=== PATIENT | female | born 1985 | race Caucasian/White ===

== ENCOUNTER 2016-12-13 06:35 | Emergency (ER) | payer OTHER ==
[2016-12-13 07:28] VITALS: TEMP 98; BMI 30.4
--- NOTE | 2016-12-13 07:49 | PDOC ---
History of Present Illness - General Chief Complaint: Pain, Acute Stated Complaint: FALL/PAIN Time Seen by Provider: 12/13/16 07:10 History Source: Patient Exam Limitations: No Limitations - History of Present Illness Initial Comments: 12/13/16 08:05 30-year-old female presents to the ED with complaints of tailbone discomfort worsened with standing and sitting since yesterday. Patient states was running inside with her son when she slipped on the left lower in her home causing her to slip backwards landing on her tailbone. Patient states pain initially was not as intense as been over the past day and has taken Tylenol, Naprosyn and Motrin with no relief. Patient denies previous injury to the affected area and denies any sensory changes distally radiation of pain into her abdominal area or weakness to the lower extremity is. Occurred: reports: yesterday Severity: reports: mild Pain Location: reports: back Method of Injury: Yes: fall Modifying Factors: improves with: None Loss of Consciousness: no loss of consciousness Associated Symptoms (Fall): denies symptoms Past History - Past Medical History Allergies/Adverse Reactions: Allergies Allergy/AdvReac Type Severity Reaction Status Date / Time Penicillins Allergy Severe Swelling Verified 12/13/16 07:28 Home Medications: Ambulatory Orders NK [No Known Home Medication] 12/13/16 Asthma: No Cancer: No Cardiac Disorders: No Diabetes: No HTN: No Psychiatric Problems: Yes (ANXIETY) Suicide Attempt (Hx): No Seizures: No Thyroid Disease: No - Surgical History Abdominal Surgery: No - Reproductive History (#): 4 Para: 0 - Immunization History Immunization Up to Date: Yes - Psycho/Social/Smoking Cessation Hx Anxiety: No Suicidal Ideation: No Smoking Status: Yes Smoking History: Never smoked Have you smoked in the past 12 months: No Number of Cigarettes Smoked Daily: 20 If you are a former smoker, when did you quit?: with Information on smoking cessation initiated: No 'Breaking Loose' booklet given: 06/04/15 Hx Alcohol Use: No Drug/Substance Use Hx: No Substance Use Type: None Hx Substance Use Treatment: No Patient Lives Alone: No Lives with/in: spouse/SO Review of Systems - Review of Systems Able to Perform ROS?: Yes Constitutional: No: Symptoms Reported Musculoskeletal: Yes: Back Pain Integumentary: No: Symptoms Reported, Bruising Neurological: No: Symptoms reported Endocrine: No: Symptoms Reported *Physical Exam - Vital Signs Last Vital Signs Temp Pulse Resp BP Pulse Ox 98.0 F 87 18 105/73 99 12/13/16 07:17 12/13/16 07:12/13/16 07:17 12/13/16 07:12/13/16 07:17 - Physical Exam General Appearance: Yes: Nourished, Appropriately Dressed. No: Apparent Distress Gastrointestinal/Abdominal: positive: Soft. negative: Tenderness Musculoskeletal: positive: Vertebral Tenderness. negative: Decreased Range of Motion (-), Muscle Spasm (S1 and ) Integumentary: positive: Normal Color (2), Warm (S), Moist (2) Neurologic: positive: Motor Strength 5/5 (ambulatory). negative: Sensory Deficit Deep Tendon Reflexes: Knee (L): 2+, Knee (R): 2+ Medical Decision Making - Medical Decision Making 12/13/16 08:09 Patient status post mechanical fall. Patient exam had tenderness to the L5-S2 without neurofocal deficits. Patient ordered for Percocet and x-ray. 12/13/16 08:37 X-ray negative for acute findings. Patient be discharged home with Percocet and told to rest and place ice to the affected area. *DC/Admit/Observation/Transfer Diagnosis at time of Disposition: Contusion of sacrum Qualifiers: Encounter type: initial encounter Qualified Code(s): S30.0XXA - Contusion of lower back and pelvis, initial encounter - Discharge Dispostion Disposition: HOME Condition at time of disposition: Good - Patient Instructions Printed Discharge Instructions: DI for Contusion Additional Instructions: Please take Percocet as needed for discomfort and apply ice to the affected area for the next 2 days. Avoid certain movements that triggered discomfort and rest.
[2016-12-13] MEDS ORDERED: ACETAMINOPHEN 325 MG TABLET (FP) PO ONE (08:02)
[2016-12-13] MEDS ORDERED: OXYCODONE/APAP 5/325MG COMBO TABLET PO ONE (08:02)
[2016-12-13] MEDS ORDERED: OXYCODONE/APAP 5/325MG COMBO TABLET ONE (08:05)
[2016-12-13] MEDS ORDERED: ACETAMINOPHEN 325 MG TABLET (FP) ONE (08:05)
[2016-12-13 09:32] VITALS: BP 110/69; PULSE 71
== END 2016-12-13 09:32 | disposition home or self-care (01) ==
LOC: JER 06:35
DX: S30.0XXA Contusion of lower back and pelvis, initial encounter (principal); W01.0XXA Fall on same level from slipping, tripping and stumbling without subsequent striking against object, initial encounter; Y93.89 Activity, other specified; Y92.018 Other place in single-family (private) house as the place of occurrence of the external cause
CPT/HCPCS: 72100-TC; 84703; 99283-25

== ENCOUNTER 2017-07-11 11:14 | Emergency (ER) | payer OTHER ==
[2017-07-11 11:31] VITALS: BP 111/74; PULSE 89; TEMP 97.8; BMI 30.4
--- NOTE | 2017-07-11 12:21 | PDOC ---
History of Present Illness - General Chief Complaint: Psychiatric Stated Complaint: CHEST PAIN, ANXIETY, INJURY Time Seen by Provider: 07/11/17 11:56 - History of Present Illness Initial Comments: 07/11/17 13:00 The patient is a 31 year old female with a history of anxiety who presents for evaluation of right hip pain, chest tightness, and SOB. The patient reports tripping and falling 1 day ago and landing on her right hip. She reports difficulty ambulating since the incident secondary to pain. She reports a sensation of chest tightness and SOB beginning earlier today prompting her presentation to the ED for evaluation. She reports her chest tightness and SOB feel similar to her previous anxiety attacks of which she has not had one in over a year. She denies fevers, chills, nausea, vomiting, abdominal pain, or changes with urination or bowel movements. Past History - Past Medical History Allergies/Adverse Reactions: Allergies Allergy/AdvReac Type Severity Reaction Status Date / Time Penicillins Allergy Severe Swelling Verified 07/11/17 11:48 Asthma: No Cancer: No Cardiac Disorders: No Diabetes: No HTN: No Psychiatric Problems: Yes (ANXIETY) Seizures: No Thyroid Disease: No - Surgical History Abdominal Surgery: Yes () - Reproductive History (#): 4 Para: 0 - Immunization History Immunization Up to Date: Yes - Suicide/Smoking/Psychosocial Hx Smoking Status: Yes Smoking History: Former smoker Have you smoked in the past 12 months: No Number of Cigarettes Smoked Daily: 20 If you are a former smoker, when did you quit?: with Information on smoking cessation initiated: No 'Breaking Loose' booklet given: 06/04/15 Hx Alcohol Use: No Drug/Substance Use Hx: No Substance Use Type: None Hx Substance Use Treatment: No Review of Systems - Review of Systems Comments:: 07/11/17 13:03 Constitutional: No fevers, chills, fatigue, malaise HEENT: No Rhinorrhea, nasal congestion, Cardiovascular: Chest tightness. No syncope, palpitations, lightheadedness Respiratory: SOB. No Cough, Hemoptysis, Gastrointestinal: No Abdominal pain, Nausea, Vomiting, Constipation, Diarrhea, Melena Genitourinary: No Dysuria, Frequency, Urgency, Hesitancy, Hematuria, Flank pain Musculoskeletal: Right hip pain. No Myalgia, arthralgia Skin: No rashes, bruising, pallor Neurologic: No Headache, Dizziness, Numbness, Weakness, or Tingling *Physical Exam - Vital Signs Last Vital Signs Temp Pulse Resp BP Pulse Ox 97.8 F 89 20 111/74 100 07/11/17 11:22 07/11/17 11:22 07/11/17 11:22 07/11/17 11:22 07/11/17 11:49 - Physical Exam Comments: 07/11/17 13:04 General Appearance: Nourished. No Apparent Distress HEENT: EOMI, RAUL Respiratory/Chest: Lungs Clear, Normal Breath Sounds. No Crackles, Rales, Rhonchi, Wheezing Cardiovascular: Regular Rhythm, Regular Rate. No Murmur, Gallops, Rubs Gastrointestinal/Abdominal: Normal Bowel Sounds, Soft. No Guarding, Rebound, Tenderness Musculoskeletal: No CVA Tenderness Extremity: Pain with flexion of the right hip. Normal Capillary Refill Integumentary: Normal Color, Dry, Warm Neurologic: Fully Oriented, Alert, Normal Mood/Affect, Normal Response, ED Treatment Course - LABORATORY CBC & Chemistry Diagram: 07/11/17 13:00 07/11/17 13:00 Medical Decision Making - Medical Decision Making 07/11/17 13:05 The patient is a 31 year old female with a history of anxiety who presents for evaluation of right hip pain, chest tightness, and SOB. Differential includes but is not limited to: Fracture, contusion, anxiety, metabolic derangement. Given her pain with movement of her right hip with a history of trauma, we will obtain plain films to evaluate. Her chest tightness and SOB is likely due to anxiety and an EKG done in triage demonstrates normal sinus rhythm. We will send a cbc, cmp, troponin to evaluate further. We will treat her with toradol and valium. We will continue to monitor and reassess. 07/11/17 14:43 cbc, cmp, troponin are unremarkable. Hip plain film is unremarkable as read by our radiologist. The patient reports some improvement in her pain. We discussed the option of obtaining a CT of her hip given her continued pain if she is unable to ambulate. The patient stated that she is able to ambulate and does not want the CT. We informed her to follow up with orthopedics if she has continued pain within the next 2-3 days. We are comfortable discharging her home with crutches and discussed proper care with her. She voiced understanding and is agreeable with the plan. *DC/Admit/Observation/Transfer Diagnosis at time of Disposition: Anxiety Contusion Qualifiers: Encounter type: initial encounter Contusion area: hip Laterality: right Qualified Code(s): S70.01XA - Contusion of right hip, initial encounter; S70.01XA - Contusion of right hip, initial encounter - Discharge Dispostion Disposition: HOME Condition at time of disposition: Improved Admit: No - Referrals Referrals: Gautam Mota MD [Staff Physician] - - Patient Instructions Printed Discharge Instructions: DI for Contusion Additional Instructions: Please return to the ER if you experience worsening or concerning symptoms including worsening pain, inability to walk, fevers, chills. You likely sustained a contusion to her right hip and will likely experience pain over the next 2-3 days before improvement. Please rest and use crutches as much as possible to give your hip time to heal. You may use ice and ibuprofen to help manage your pain. Please follow up with the orthopedics doctor whose number we have provided in the next 3-4 days if you continued to have symptoms.
[2017-07-11] MEDS ORDERED: KETOROLAC TROMETHAMINE 30 MG/1 ML VIAL IM ONE (12:52)
[2017-07-11] MEDS ORDERED: diazePAM 5 MG TABLET PO ONE (12:52)
[2017-07-11 13:09] LABS: BASOPHIL 0.3 % (0-2.0); EOSINOPHIL 0.9 % (0-4.5); MCH 29.4 pg (25.7-33.7); MCHC 33.8 g/dl (32.0-36.0); MEAN CELL VOLUME 86.8 fl (80-96); MEAN PLT VOLUME 9.1 fl (7.5-11.1); NEUTROPHILS 35.8 % (42.8-82.8); PLATELET COUNT 141 K/MM3 (134-434); RDW 13.8 % (11.6-15.6); WHITE BLOOD COUNT 4.3 K/mm3 (4.0-10.0)
[2017-07-11] MEDS ORDERED: diazePAM 5 MG TABLET ONE (13:23)
[2017-07-11] MEDS ORDERED: KETOROLAC TROMETHAMINE 30 MG/1 ML VIAL ONE (13:23)
[2017-07-11 13:33] LABS: ALBUMIN 3.6 g/dl (3.4-5.0); ANION GAP 7 (8-16); BILIRUBIN,TOTAL 0.2 mg/dL (0.2-1.0); CALCIUM 8.5 mg/dL (8.5-10.1); CO2 27 mmol/L (21-32); CREATININE 0.7 mg/dL (0.55-1.02); GLUCOSE,RANDOM 77 mg/dL (74-106); SGOT/AST 26 U/L (15-37); SGPT/ALT 33 U/L (12-78); TOT PROT 6.7 g/dl (6.4-8.2)
[2017-07-11 13:35] LABS: ALK PHOS 64 U/L (45-117); CPK 115 IU/L (26-192); TROPONIN I < 0.02 ng/ml (0.00-0.05)
--- NOTE | 2017-07-11 15:06 | PDOC ---
Attending Attestation - Resident Resident Name: Tommy Ramírezel - ED Attending Attestation I have performed the following: I have examined & evaluated the patient, The case was reviewed & discussed with the resident, I agree w/resident's findings & plan, Exceptions are as noted - HPI HPI: 07/11/17 15:06 31 years old past medical history while running yesterday tripped fell landed on her right hip. Has been able to ambulate. Today patient woke up with moderate to severe hip pain worse with ambulating but still able to ambulate came to ED for further evaluation. No other head injury sustained also complaining of mild panic type symptoms which patient has had before some chest pressure and tightness no cardiac risks factors no travel no PE or DVT risk factors negative by gadiel and Ana M criteria - Physicial Exam PE: 07/11/17 15:07 Vitals: Triage Vital signs reviewed General Appearance: no acute distress, well nourished well developed, Head: Atraumatic, Chest Wall: Nontender Cardiac: Regular rate and rhythym, no murmurs, no rubs, no gallops, Lungs: Clear to auscultation bilateral, good air movement bilaterally, Abdomen: Soft, non distended, normal bowel sounds, non tender to palpation Extremities: Full range of motion to all extremities, no cyanosis, clubbing, or edema tenderness to palpation over the right hip Skin: Warm and dry, no rashes or lesions, no rash, no petechiae Neuro: AOX3; Cranial Nerves 2-12 grossly intact, Strength intact to all extremities, Sensation intact to all extremities,gait normal Psych: normal mood, normal affect - Medical Decision Making 07/11/17 15:09 07/11/17 15:14 Patient well-appearing no apparent distress no acute fracture noted on x-ray. Given still having pain recommended CT however at this time given the patient is able to ambulate refuses CT will use crutches pain meds ice no improvement in symptoms after few days will follow up with either orthopedics or return to the emergency department Findings, need follow-up and strict return instructions discussed with patient.
--- NOTE | 2017-07-12 09:06 | EKG ---
Test Reason : Blood Pressure : / mmHG Vent. Rate : 071 BPM Atrial Rate : 071 BPM P-R Int : 162 ms QRS Dur : 074 ms QT Int : 374 ms P-R-T Axes : 051 060 046 degrees QTc Int : 406 ms NORMAL SINUS RHYTHM WITH SINUS ARRHYTHMIA NORMAL ECG WHEN COMPARED WITH ECG OF 14-MAY-2016 10:40, NO SIGNIFICANT CHANGE WAS FOUND Confirmed by LENORE MAYFIELD MD ([id number]) on 07/12/2017 9:05:57 AM Referred By: Confirmed By:LENORE MAYFIELD MD
== END 2017-07-11 14:56 | disposition home or self-care (01) ==
LOC: JER 11:14
PROC: 3E0233Z Introduction of Anti-inflammatory into Muscle, Percutaneous Approach (ICD-10-PCS; principal; 2017-07-11)
DX: F41.9 Anxiety disorder, unspecified (principal); S70.01XA Contusion of right hip, initial encounter; W01.0XXA Fall on same level from slipping, tripping and stumbling without subsequent striking against object, initial encounter; Y93.89 Activity, other specified; Y92.9 Unspecified place or not applicable
CPT/HCPCS: 36415; 73523-TC; 80053; 82550; 84484; 84703; 85025; 93005; 93010; 96372; 99283-25

== ENCOUNTER 2017-07-14 10:07 | Emergency (ER) | payer OTHER ==
[2017-07-14 10:17] VITALS: BP 130/78; PULSE 87; TEMP 99.2; BMI 30.4
--- NOTE | 2017-07-14 10:53 | PDOC ---
History of Present Illness <Denisse Dominguez S - Last Filed: 07/14/17 12:04> - General History Source: Patient Exam Limitations: No Limitations - History of Present Illness Initial Comments: 07/14/17 10:51 31F with no pmh preent to the ED with hand injury. 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 No visible injuries, swelling or difference in color/temperature. Patient also presents with upper respiratory infection and pharyngitis. <Corby Peralta - Last Filed: 07/15/17 22:28> - General Chief Complaint: Pain Stated Complaint: COUGH X 1 DAY,RIGHT HAND PAIN S/P INJURY TODAY Time Seen by Provider: 07/14/17 10:09 Past History <Denisse Dominguez Navarro - Last Filed: 07/14/17 12:04> - Past Medical History Asthma: No Cancer: No Cardiac Disorders: No COPD: No Diabetes: No HTN: No Psychiatric Problems: Yes (ANXIETY) Seizures: No Thyroid Disease: No - Surgical History Abdominal Surgery: Yes () - Reproductive History (#): 4 Para: 0 - Immunization History Immunization Up to Date: Yes - Suicide/Smoking/Psychosocial Hx Smoking Status: Yes Smoking History: Never smoked Have you smoked in the past 12 months: No Number of Cigarettes Smoked Daily: 20 If you are a former smoker, when did you quit?: with 'Breaking Loose' booklet given: 06/04/15 Hx Alcohol Use: No Drug/Substance Use Hx: No Substance Use Type: None Hx Substance Use Treatment: No <Corby Peralta - Last Filed: 07/15/17 22:28> - Past Medical History Allergies/Adverse Reactions: Allergies Allergy/AdvReac Type Severity Reaction Status Date / Time Penicillins Allergy Severe Swelling Verified 07/14/17 10:09 Home Medications: Ambulatory Orders Oxycodone HCl/Acetaminophen [Percocet 5-325 mg Tablet] 1 - 2 tab PO Q6H #20 tab MDD 3 07/14/17 Review of Systems - Review of Systems Able to Perform ROS?: Yes Constitutional: No: Symptoms Reported HEENTM: No: Symptoms Reported Respiratory: Yes: Cough Cardiac (ROS): No: Symptoms Reported ABD/GI: No: Symptoms Reported : No: Symptoms Reported Musculoskeletal: Yes: See HPI Integumentary: Yes: See HPI All Other Systems: Reviewed and Negative <Corby Peralta - Last Filed: 07/15/17 22:28> *Physical Exam - Vital Signs Last Vital Signs Temp Pulse Resp BP Pulse Ox 99.2 F 87 16 130/78 98 07/14/17 10:09 07/14/17 10:09 07/14/17 10:09 07/14/17 10:09 07/14/17 10:09 <JanaRemus S - Last Filed: 07/14/17 12:04> - Vital Signs Last Vital Signs Temp Pulse Resp BP Pulse Ox 99.2 F 87 16 130/78 98 07/14/17 10:09 07/14/17 10:09 07/14/17 10:09 07/14/17 10:09 07/14/17 10:09 - Physical Exam General Appearance: Yes: Nourished, Appropriately Dressed, Mild Distress HEENT: positive: RAUL, Muffled/Hoarse voice, Pharyngeal Erythema, Tonsillar Erythema. negative: Tonsillar Exudate Respiratory/Chest: positive: Lungs Clear, Normal Breath Sounds. negative: Chest Tender Cardiovascular: positive: Regular Rhythm, Regular Rate, S1, S2 Musculoskeletal: positive: Decreased Range of Motion (of R hand due to pain) Extremity: positive: Normal Capillary Refill (not assessable due to large black synthetic fingernails) Integumentary: positive: Normal Color, Dry, Warm. negative: Swelling <PeraltaCorby - Last Filed: 07/15/17 22:28> ED Treatment Course - ADDITIONAL ORDERS Additional order review: Laboratory Results 07/14/17 10:38 Urine HCG, Qual Negative - Medications Given in the ED: ED Medications Discontinued Medications Generic Name Dose Route Start Last Admin Trade Name Freq PRN Reason Stop Dose Admin Cyclobenzaprine HCl 5 mg 07/14/17 10:57 07/14/17 11:13 Flexeril - PO 07/14/17 10:58 Not Given ONCE ONE Ketorolac Tromethamine 15 mg 07/14/17 10:56 07/14/17 11:13 Toradol Injection - IM 07/14/17 10:57 Not Given ONCE ONE <MoeliseoaRemus S - Last Filed: 07/14/17 12:04> - RADIOLOGY Radiology Studies Ordered: Category Date Time Status HAND- RIGHT [RAD] Stat Radiology 07/14/17 10:36 Ordered <Corby Peralta - Last Filed: 07/15/17 22:28> Medical Decision Making - Medical Decision Making 07/14/17 11:46 31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 PAtient good wrist mobility, decreased range of motion of hand and fingers in all direction due to pain,. Hand x-ray to rule out fracture. Patient declines being tested for Rapid Strep. 07/15/17 22:28 Feels beter after ketorolac and cyclobenzaprine. Advised to "Elevation, rest 30 minutes apart ice pack. Call the hand specialist today for an appointment" D/c'ed <Corby Peralta - Last Filed: 07/15/17 22:28> *DC/Admit/Observation/Transfer - Discharge Dispostion Admit: No <Denisse Dominguez - Last Filed: 07/14/17 12:04> <Corby Peralta - Last Filed: 07/15/17 22:28> Diagnosis at time of Disposition: Crushed hand and fingers Qualifiers: Encounter type: initial encounter Laterality: right Qualified Code(s): S67.21XA - Crushing injury of right hand, initial encounter - Discharge Dispostion Disposition: HOME Condition at time of disposition: Stable - Prescriptions Prescriptions: Oxycodone HCl/Acetaminophen [Percocet 5-325 mg Tablet] 1 - 2 tab PO Q6H #20 tab MDD 3 - Referrals Referrals: Bin Chung MD [Staff Physician] - - Patient Instructions Printed Discharge Instructions: DI for Hand Injury Additional Instructions: Elevation, rest 30 minutes apart ice pack. Call the hand specialist today for an appointment
[2017-07-14] MEDS ORDERED: KETOROLAC TROMETHAMINE 15 MG/ML VIAL IM ONE (10:56)
[2017-07-14] MEDS ORDERED: CYCLOBENZAPRINE HCL 10 MG TABLET (FP) PO ONE (10:57)
[2017-07-14] MEDS ORDERED: KETOROLAC TROMETHAMINE 30 MG/1 ML VIAL ONE (11:06)
[2017-07-14] MEDS ORDERED: CYCLOBENZAPRINE HCL 10 MG TABLET (FP) ONE (11:06)
== END 2017-07-14 12:17 | disposition home or self-care (01) ==
LOC: FER 10:07
DX: S67.21XA Crushing injury of right hand, initial encounter (principal); W23.0XXA Caught, crushed, jammed, or pinched between moving objects, initial encounter; Y93.G3 Activity, cooking and baking; Y92.000 Kitchen of unspecified non-institutional (private) residence as the place of occurrence of the external cause; F41.9 Anxiety disorder, unspecified; Z87.891 Personal history of nicotine dependence
CPT/HCPCS: 73130-TC-RT; 84703; 99283-25

== ENCOUNTER 2017-10-03 07:13 | Emergency (ER) | payer SELFPAY ==
[2017-10-03 07:27] VITALS: BP 142/82; PULSE 16; TEMP 98.3; BMI 30.4
--- NOTE | 2017-10-03 07:48 | PDOC ---
History of Present Illness - General Chief Complaint: Pain, Acute Stated Complaint: PAIN Time Seen by Provider: 10/03/17 07:25 - History of Present Illness Initial Comments: 10/03/17 07:48 Chief complaint: Back pain History of present illness: Patient slipped on the ice 2 days ago, direct impact to her back. Yesterday she had continue pain, remained in bed, but the pain did not improve. The pain is located in the low back bilaterally. There is radiation to both buttocks, but not to the legs. Review of systems: No distal numbness tingling pain or weakness of the lower extremities. No dysuria frequency urgency hesitancy or hematuria. No vaginal bleeding or discharge. No headache, URI symptoms, sore throat, cough, chest pain , shortness of breath, abdominal pain, nausea, vomiting, diarrhea, visual or focal neurologic symptoms, unsteadiness of gait. No pain or injury to the head or neck. Past medical history: No active medical or surgical problems. 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 Physical exam: Alert oriented 3 well-developed well-nourished mild distress due to back pain but cooperative Afebrile, vital signs normal Head atraumatic. PERRLA, fundi benign, ENT clear Neck supple without bruit mass or nodes. No cervical spine tenderness or deformity, full range of motion without pain Chest clear to P&A full breath sounds throughout bilaterally no wheezes rales or rhonchi. No chest wall tenderness or deformity CV S1 and S2 nl without murmur rub or gallop pulses full and symmetric no JVD or edema no bruits Abdomen soft nontender without mass or organomegaly. Bowel sounds normal. Nondistended. No CVAT Extremities no CCE. No visible or palpable trauma. Full range of motion of all joints without limitation Skin clear, no rash, adequate turgor and wet mucous membranes Neurological C2 to 12 intact. No focal sensory or motor deficits. Strength full and symmetric. Gait stable, mildly impaired due to back pain. Cerebellum intact LS spine: No point tenderness or deformity. Maintenance of normal lumbar lordosis. However, mild paravertebral spasm in the sacral area. No point tenderness over the pelvis. Impression: Back strain, muscle spasm. Plan: X-ray, pain management, follow-up as indicated. Past History - Past Medical History Allergies/Adverse Reactions: Allergies Allergy/AdvReac Type Severity Reaction Status Date / Time Penicillins Allergy Severe Swelling Verified 07/14/17 10:09 amoxicillin Allergy Verified 10/03/17 07:17 Home Medications: Ambulatory Orders NK [No Known Home Medication] 10/03/17 Asthma: No Cancer: No Cardiac Disorders: No COPD: No DVT: No Diabetes: No HTN: No Psychiatric Problems: Yes (ANXIETY) Seizures: No Thyroid Disease: No - Surgical History Abdominal Surgery: Yes () - Reproductive History (#): 4 Para: 0 - Immunization History Immunization Up to Date: Yes - Suicide/Smoking/Psychosocial Hx Smoking Status: Yes Smoking History: Former smoker Have you smoked in the past 12 months: No Number of Cigarettes Smoked Daily: 20 If you are a former smoker, when did you quit?: with Information on smoking cessation initiated: No 'Breaking Loose' booklet given: 06/04/15 Hx Alcohol Use: No Drug/Substance Use Hx: No Substance Use Type: None Hx Substance Use Treatment: No *Physical Exam - Vital Signs Last Vital Signs Temp Pulse Resp BP Pulse Ox 98.3 F 16 L 20 142/82 99 10/03/17 07:14 10/03/17 07:14 10/03/17 07:14 10/03/17 07:14 10/03/17 07:14 Medical Decision Making - Medical Decision Making 10/03/17 09:36 test is negative X-ray is negative for acute fracture or subluxation. Minor DJD is present. No change from prior film one year ago Zofran administered because the patient has experienced nausea with Toradol in the past. Toradol and administered without adverse effect. Patient more comfortable, less stiff, moving better and ambulating freely Continue symptomatic treatment, medication as prescribed, and follow-up as needed. Referred to Dr. Tamayo *DC/Admit/Observation/Transfer Diagnosis at time of Disposition: Low back strain Qualifiers: Encounter type: initial encounter Qualified Code(s): S39.012A - Strain of muscle, fascia and tendon of lower back, initial encounter - Discharge Dispostion Disposition: HOME Condition at time of disposition: Improved Admit: No - Referrals Referrals: Ed Tamayo MD [Staff Physician] - 1 week - Patient Instructions Printed Discharge Instructions: DI for Back Strain or Sprain Additional Instructions: Rest, heat, avoid sitting, medications as directed. If worse, return to ER otherwise see primary physician or Back Specialist for further care if symptoms persist. - Post Discharge Activity
[2017-10-03 07:58] LABS: PH,URINE 8.5 (4.5-8); URINE APPEARANCE Clear; URINE BILIRUBIN Negative (NEGATIVE); URINE BLOOD Negative (NEGATIVE); URINE GLUCOSE (UA) Negative (NEGATIVE); URINE KETONE Negative (NEGATIVE); URINE NITRITE Negative (NEGATIVE); URINE PROTEIN Negative (NEGATIVE); URINE UROBILINOGEN 0.2 (0.2-1.0)
[2017-10-03 07:59] LABS: URINE COLOR AMBER
[2017-10-03 08:00] LABS: HCG,QUALITATIVE URINE NEGATIVE
[2017-10-03] MEDS ORDERED: ONDANSETRON *ODT* 4 MG TABLET ONE (08:53)
[2017-10-03] MEDS ORDERED: KETOROLAC TROMETHAMINE 60 MG/2 ML VIAL ONE (09:22)
[2017-10-03] MEDS ORDERED: KETOROLAC TROMETHAMINE 60 MG/2 ML VIAL IM ONE (09:29)
[2017-10-03] MEDS ORDERED: ONDANSETRON *ODT* 4 MG TABLET SL ONE (09:29)
== END 2017-10-03 09:48 | disposition home or self-care (01) ==
LOC: FER 07:13
PROC: 3E0233Z Introduction of Anti-inflammatory into Muscle, Percutaneous Approach (ICD-10-PCS; principal; 2017-10-03)
DX: S39.012A Strain of muscle, fascia and tendon of lower back, initial encounter (principal); W00.1XXD Fall from stairs and steps due to ice and snow, subsequent encounter; Y93.89 Activity, other specified; Y92.9 Unspecified place or not applicable
CPT/HCPCS: 72100-TC; 81003; 84703; 99282-25

== ENCOUNTER 2017-12-24 07:41 | Emergency (ER) | payer OTHER ==
[2017-12-24 07:55] VITALS: BP 103/76; PULSE 84; TEMP 98; BMI 27.3
[2017-12-24] MEDS ORDERED: diazePAM 5 MG TABLET ONE (08:38)
[2017-12-24] MEDS ORDERED: ACETAMINOPHEN 325 MG TABLET (FP) ONE (08:38)
[2017-12-24] MEDS ORDERED: ACETAMINOPHEN 325 MG TABLET (FP) PO ONE (08:41)
[2017-12-24] MEDS ORDERED: diazePAM 5 MG TABLET PO ONE (08:41)
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
== END 2017-12-24 09:35 | disposition home or self-care (01) ==
LOC: JERFT 07:41
DX: S16.1XXA Strain of muscle, fascia and tendon at neck level, initial encounter (principal); V43.51XA Car driver injured in collision with sport utility vehicle in traffic accident, initial encounter; Y92.488 Other paved roadways as the place of occurrence of the external cause; Y93.89 Activity, other specified; Y99.8 Other external cause status
CPT/HCPCS: 72050-TC-FY; 99281-25

== ENCOUNTER 2019-05-17 11:00 | Emergency (ER) | payer SELFPAY ==
[2019-05-17 11:06] VITALS: BP 118/71; PULSE 70; TEMP 98.5; BMI 26.6
[2019-05-17] MEDS ORDERED: traMADol HCL 50 MG TABLET PO ONE (11:30)
[2019-05-17] MEDS ORDERED: traMADol HCL 50 MG TABLET ONE (11:38)
--- NOTE | 2019-05-17 11:39 | PDOC ---
History of Present Illness - General Chief Complaint: Toothache Stated Complaint: PAIN Time Seen by Provider: 05/17/19 11:18 History Source: Patient - History of Present Illness Associated Symptoms: denies: fever/chills Past History - Past Medical History Allergies/Adverse Reactions: Allergies Allergy/AdvReac Type Severity Reaction Status Date / Time Penicillins Allergy Severe Swelling Verified 05/17/19 11:06 amoxicillin Allergy Verified 05/17/19 11:06 Home Medications: Ambulatory Orders Diazepam [Valium] 5 mg PO BID PRN #8 tablet MDD 2 12/24/17 Oxycodone HCl/Acetaminophen [Percocet 5-325 mg Tablet] 1 - 2 tab PO Q6H PRN #12 tab MDD 4 12/24/17 Tramadol HCl 50 mg PO Q6H #10 tablet MDD 200 mg 05/17/19 Asthma: No Cancer: No Cardiac Disorders: No COPD: No DVT: No Diabetes: No HTN: No Psychiatric Problems: Yes (ANXIETY) Seizures: No Thyroid Disease: No - Surgical History Abdominal Surgery: Yes () - Reproductive History (#): 4 Para: 0 - Immunization History Immunization Up to Date: Yes - Suicide/Smoking/Psychosocial Hx Smoking Status: Yes Smoking History: Never smoked Have you smoked in the past 12 months: No Number of Cigarettes Smoked Daily: 20 If you are a former smoker, when did you quit?: with 'Breaking Loose' booklet given: 06/04/15 Hx Alcohol Use: No Drug/Substance Use Hx: No Substance Use Type: None Hx Substance Use Treatment: No Review of Systems - Review of Systems Constitutional: No: Chills, Fever *Physical Exam - Vital Signs Last Vital Signs Temp Pulse Resp BP Pulse Ox 98.5 F 70 16 118/71 95 05/17/19 11:04 05/17/19 11:04 05/17/19 11:04 05/17/19 11:04 05/17/19 11:04 - Physical Exam General Appearance: Yes: Appropriately Dressed, Moderate Distress HEENT: positive: Normal Voice, Other (minimal swelling along L mandible w/ ttp, +ttp to gingival mucosa of L lower and upper 2nd molars, no ovious abscess) Neck: positive: Supple Respiratory/Chest: negative: Respiratory Distress Integumentary: positive: Dry, Warm Neurologic: positive: Fully Oriented, Alert, Normal Mood/Affect Medical Decision Making - Medical Decision Making 05/17/19 11:54 33-year-old female, no significant history, here with L lower toothache with facial pain and swelling x several days. No trauma, fever or chills. Last seen by dentist 6 months ago for routine cleaning See exam Dental pain No obvious e/o abscess -pain control here -Dc to f/u at urgent care dental clinic later on today *DC/Admit/Observation/Transfer Diagnosis at time of Disposition: Tooth ache, Facial pain - Discharge Dispostion Disposition: HOME Condition at time of disposition: Good - Prescriptions Prescriptions: Tramadol HCl 50 mg PO Q6H #10 tablet MDD 200 mg - Referrals - Patient Instructions Printed Discharge Instructions: DI for Dental Pain Additional Instructions: You can follow up with dental today at: [facility] [address] [place] [address] or Follow up at dental clinic at [facility] at [phone], or at [facility] at [phone] - Post Discharge Activity
== END 2019-05-17 11:44 | disposition home or self-care (01) ==
LOC: JERFT 11:00
DX: K08.89 Other specified disorders of teeth and supporting structures (principal)
CPT/HCPCS: 99282-25

== ENCOUNTER 2019-09-10 18:39 | Emergency (ER) | payer OTHER ==
[2019-09-10 18:45] VITALS: BMI 28.5
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
[2019-09-10] MEDS ORDERED: ACETAMINOPHEN 325 MG TABLET (FP) PO ONE (19:22)
[2019-09-10 19:30] LABS: BASO % 0.4 % (0-2.0); HEMATOCRIT 37.8 % (32.4-45.2); HEMOGLOBIN 12.4 GM/dL (10.7-15.3); LYMPH % 52.9 % (8-40); MCH 29.7 pg (25.7-33.7); MCHC 32.9 g/dl (32.0-36.0); MEAN CELL VOLUME 90.3 fl (80-96); MEAN PLT VOLUME 8.9 fl (7.5-11.1); MONO % 9.8 % (3.8-10.2); NEUT % 35.9 % (42.8-82.8); PLATELET COUNT 167 K/MM3 (134-434); RBC 4.19 M/mm3 (3.60-5.2); RDW 13.4 % (11.6-15.6); WHITE BLOOD COUNT 4.6 K/mm3 (4.0-10.0)
--- NOTE | 2019-09-10 19:44 | PDOC ---
Documentation entered by Susan Chery SCRIBE, acting as scribe for Antoinette Hansen MD. Antoinette Hansen MD: This documentation has been prepared by the Vik zamorano Nirvannie, SCRIBE, under my direction and personally reviewed by me in its entirety. I confirm that the documentation accurately reflects all work, treatment, procedures, and medical decision making performed by me. 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 As per patient, she was taking a shower at which time she noticed a significant amount of blood while in the shower thus, she exited and sat for approximately 15 min. She notes upon getting up she observed a large clot with associated sharp suprapubic pain. She denies recent fevers, chills, headache or dizziness. She denies recent nausea, vomit, diarrhea or constipation. She denies recent dysuria, frequency, urgency or hematuria. She denies recent chest pain or shortness of breath. Allergies: Penicillins, Amoxicillin Blood type/Rh: O- - Physicial Exam PE: 09/10/19 19:38 GENERAL: The patient is in no acute distress. ENT: Ears normal, nares patent, oropharynx clear without exudates. Moist mucous membranes. NECK: Normal range of motion, supple LUNGS: Breath sounds equal, clear to auscultation bilaterally. No wheezes, and no crackles. HEART:Regular rate and rhythm, normal S1 and S2 without murmur, rub or gallop. ABDOMEN: Soft, mild lower abdominal tenderness PELVIC: Please see Dr. Hinojosa's note for details EXTREMITIES: Normal range of motion, no edema. NEUROLOGICAL: Cranial nerves II through XII grossly intact. Normal speech. No focal neurological deficits. SKIN: Warm, Dry, normal turgor, no rashes or lesions noted. - Medical Decision Making 09/10/19 19:39 33-year-old female presenting to the emergency department with a complaint of vaginal bleeding. She has a history of multiple miscarriages which she has previously been told is attributable to her Rh status. Patient recently found out that she was . Noted vaginal bleeding today. Differential diagnosis includes but is not limited to: Threatened AB, ectopic, inevitable AB, normal menses Will do: Labs UA Transvaginal ultrasound Rh Will need RhoGam We will plan to discharge home 09/10/19 19:40 Laboratory Tests 09/10/19 19:20 Hgb 12.4 Hct 37.8 09/10/19 20:24 Laboratory Tests 09/10/19 19:20 BUN 7.4 Creatinine 0.6 Beta HCG, Quant 83026.3 09/10/19 21:56 09/10/19 22:01 Laboratory Tests 09/10/19 19:20 Blood Type O NEGATIVE Will give Rhogam EXAM: Ultrasound OB less than 14 weeks trans-vaginal HISTORY: 33-year-old female vaginal bleeding last menstrual period July 29, 2019 estimated gestational age based on the last menstrual period 6 weeks 1 day COMPARISON: None. FINDINGS: Within the endometrium there is a gestational sac yolk sac or pole. heart motion 115 bpm. Shiro-rump length measurement equals 6 weeks 2 days. The uterus measures 9.1 x 5.2 x 6.7 cm. There is no evidence of myometrial masses. The right ovary measures 3.6 x 2.7 x 2.8 cm. Right ovarian anechoic 1.4 cm cyst and corpus luteal cyst noted. Limited exam. Nonvisualization of the left ovary. There is no free fluid in the pelvis. IMPRESSION: Single living intrauterine fetus estimated gestational age 6 weeks 2 days. Clinical impression: Threatened Ab, initial presentation
[2019-09-10 20:18] LABS: ALBUMIN 4.1 g/dl (3.4-5.0); BILIRUBIN,TOTAL 0.3 mg/dL (0.2-1); BLOOD UREA NITROGEN 7.4 mg/dL (7-18); CREATININE 0.6 mg/dL (0.55-1.3); POTASSIUM 4.1 mmol/L (3.5-5.1); TOT PROT 7.5 g/dl (6.4-8.2)
[2019-09-10] MEDS ORDERED: ACETAMINOPHEN 325 MG TABLET (FP) ONE (20:20)
[2019-09-10] MEDS ORDERED: RHO(D) IMMUNE GLOBULIN 1,500 UNIT DISP.SYRIN IM ONE (21:55)
[2019-09-10 22:57] VITALS: BP 105/60; PULSE 85; TEMP 98.1
== END 2019-09-10 22:58 | disposition home or self-care (01) ==
LOC: JER 18:39
PROC: 3E0234Z Introduction of Serum, Toxoid and Vaccine into Muscle, Percutaneous Approach (ICD-10-PCS; principal; 2019-09-10)
DX: O26.891 Other specified pregnancy related conditions, first trimester (principal); O20.8 Other hemorrhage in early pregnancy; O34.81 Maternal care for other abnormalities of pelvic organs, first trimester; N83.11 Corpus luteum cyst of right ovary; O36.0910 Maternal care for other rhesus isoimmunization, first trimester, not applicable or unspecified; Z3A.01 Less than 8 weeks gestation of pregnancy
CPT/HCPCS: 36415; 76817-TC; 80053; 84702; 85025; 86850; 86900; 86901; 86999; 96372; 99285-25; J1561

== ENCOUNTER 2020-05-13 16:56 | Emergency (ER) | payer OTHER ==
[2020-05-13] MEDS ORDERED: IBUPROFEN 600 MG TABLET (FP) PO ONE ×2 (16:58→17:06)
[2020-05-13 17:14] VITALS: BP 118/73; PULSE 76; TEMP 98.1; BMI 28.5
--- NOTE | 2020-05-13 18:04 | PDOC ---
Documentation entered by Bettye Vasquez SCRIBE, acting as scribe for Barbara Khan MD. Barbara Khan MD: This documentation has been prepared by the scribe, Bettye Vasquez SCRIBE, under my direction and personally reviewed by me in its entirety. I confirm that the documentation accurately reflects all work, treatment, procedures, and medical decision making performed by me. History of Present Illness - General Chief Complaint: Injury Stated Complaint: RIGHT BIG TOE INJURY Time Seen by Provider: 05/13/20 16:58 History Source: Patient Exam Limitations: No Limitations - History of Present Illness Initial Comments: 05/13/20 17:40 The patient is a 34-year-old female with no reported past medical history who presents to the emergency department s/p a right great toe injury. The patient reports she was walking up the stairs holding the laundry basket when she stopped because her 3-year-old son was doing something he shouldnt be doing. The patient reports she lifted her foot to continue walking when she injured her great toe on the flat portion of the step. The patient reports she hit the great toe very hard against the floor and reports an intense and throbbing pain to the right great toe, with pain radiating up the right foot. Denies numbness or tingling. Denies falling or other injuries. Denies taking any medication for the pain. Denies fever, chills, chest pain, SOB, palpitation, dizziness, weakness, N, V, D, abdominal pain, bladder and bowel problems, leg swelling, No sick contacts, or travel. No new changes in medications. Allergies: penicillins and amoxicillin Past Medical History: None reported Social history: Lives with family. No tobacco, ETOH, or drug use. Surgical history: Meds: as documented in EMR PMD: 2 Lelo laura Past History - Medical History Allergies/Adverse Reactions: Allergies Allergy/AdvReac Type Severity Reaction Status Date / Time Penicillins Allergy Severe Swelling Verified 09/10/19 18:45 amoxicillin Allergy Verified 09/10/19 18:45 Home Medications: Ambulatory Orders oxyCODONE HCL [Oxycodone HCl] 15 mg PO TID PRN 09/10/19 Asthma: No Cancer: No Cardiac Disorders: No COPD: No DVT: No Diabetes: No HTN: No Psychiatric Problems: Yes (ANXIETY) Seizures: No Thyroid Disease: No - Surgical History Abdominal Surgery: Yes () - Reproductive History Is Patient Now?: No (#): 4 Para: 0 Spontaneous : 5 - Immunization History Immunization Up to Date: Yes - Psycho-Social/Smoking History Smoking Status: Yes Smoking History: Never smoked Have you smoked in the past 12 months: No Number of Cigarettes Smoked Daily: 20 If you are a former smoker, when did you quit?: with Information on smoking cessation initiated: No 'Breaking Loose' booklet given: 06/04/15 - Substance Abuse Hx (Audit-C & DAST Scrn) How often the patient has a drink containing alcohol: Never Score: In Men: 4 or > Positive; In Women: 3 or > Positive: 0 Screen Result (Pos requires Nsg. Audit-10AR): Negative In the last yr the pt used illegal drug/Rx for NonMed reason: No Score: Yes response is considered Positive: 0 Screen Result (Positive result requires Nsg. DAST-10): Negative Review of Systems - Review of Systems Able to Perform ROS?: Yes Comments:: 05/13/20 17:21 Constitutional: no fevers or chills. Abdomen: no abdominal pain Genitourinary: no urinary retention or incontinence, no dysuria, urgency or frequency. no hematuria MUSCULOSKELETAL: +R. great toe injury. No other joint pain and swelling. No muscle pain/arthralgias. Back: no back pain SKIN: no redness or skin changes, no discharge, no rash. No wounds. Hematologic: no easy bruising/bleeding. NEUROLOGIC: No weakness, numbness or tingling. Allergic/Immunologic: no allergies All other systems reviewed and negative, or as documented in HPI. *Physical Exam - Vital Signs Last Vital Signs Temp Pulse Resp BP Pulse Ox 98.1 F 76 18 118/73 100 05/13/20 17:06 05/13/20 17:06 05/13/20 17:06 05/13/20 17:06 05/13/20 17:06 - Physical Exam 05/13/20 17:22 General: NAD, well appearing Vascular: 2+ DP pulses symmetric and equal. MSK: +significant tenderness to the dorsal aspect of the right great toe. +ecchymosis around the plantar joint. +No palpable deformity. +diffuse tenderness to the dorsal aspect of the foot. Rest of the MSK exam: notable for soft compartments, Cap refill <2 sec. Proximal and distal strength 5/5, principal software engineer strength 5/5 - equal and symmetric. Plantar flexion and dorsiflexion 5/5. FROM. Sensation grossly intact to light touch. No calf tenderness. no nailbed avulsion, intact. Neuro: alert, no focal neurologic deficits Skin: +ecchymosis around the plantar joint. color normal color, warm and well perfused. Cap refill <2 sec. 05/13/20 18:04 Medical Decision Making - Medical Decision Making 05/13/20 18:01 Vital Signs Temp Pulse Resp BP Pulse Ox 98.1 F 76 18 118/73 100 05/13/20 17:06 05/13/20 17:06 05/13/20 17:06 05/13/20 17:06 05/13/20 17:06 ddx. foot fx, toe fx, dislocation, contusion NVI VS reviewed, wnl Xray rt foot normal joint space alignment, no acute fx or dislocation. rt great toe distal phalanx with small min displaced avulsion fx tawnya tape, hard sole shoe, Crutches to assist with ambulation, WBAT. Discussed results with patient. Rest ice and elevation. Pain control with OTC meds including motrin/tylenol as needed every 6 hours; no narcotics needed. Ortho followup provided. Please return to ED for increased pain, weakness, numbness/tingling, fever, or redness. Discharge - Discharge Information Problems reviewed: Yes Clinical Impression/Diagnosis: Toe fracture, right Qualifiers: Encounter type: initial encounter Toe: great toe Fracture type: closed Phalanx: unspecified phalanx Fracture alignment: nondisplaced Qualified Code(s): S92.404A - Nondisplaced unspecified fracture of right great toe, initial encounter for closed fracture Contusion, toe Qualifiers: Encounter type: initial encounter Toe: great toe Damage to nail status: without damage Laterality: right Qualified Code(s): S90.111A - Contusion of right great toe without damage to nail, initial encounter Condition: Stable Disposition: HOME - Admission No - Follow up/Referral Referrals: Eric Collado MD [Staff Physician] - Pancho Armstrong DO [Staff Physician] - Gautam Mota MD [Staff Physician] - - Patient Discharge Instructions Patient Printed Discharge Instructions: DI for Toe Fracture, DI for Contusion Additional Instructions: you have a contusion and right toe fracture, very small hairline fracture wear the tawnya tape provided, with the gauze and the hard sole shoe crutches to help with ambulation weight bearing as tolerated follow up with orthopedist specialist for care FALL PREVENTION AT HOME WHAT YOU NEED TO KNOW There are many different factors that can increase your risk of falls. Falls can happen any time, but the majority of them occur in the home. Fall prevention includes ways to make your home and other areas safer. It also includes ways you can move more carefully to prevent a fall. Health conditions that cause changes in your blood pressure, vision, or muscle strength and coordination may increase your risk for falls. Medicines, including anesthesia, may increase your risk for falls if they make you dizzy, weak, or sleepy. FALL PREVENTION TIPS Stand or sit up slowly. This may help you keep your balance and prevent falls. Do not walk and talk at the same time. Concentrate on the task of walking and continue the conversation after you've reached a safe place. Wear shoes that fit well and have soles that principal software engineer. Wear shoes both inside and outside. Use slippers with good principal software engineer. Avoid shoes with high heels. Use assistive devices as directed. Your healthcare provider may suggest that you use a cane or walker to help you keep you balance. Be sure you have adequate lighting throughout your house. Keep paths clear. Remove books, shoes and other objects from walkways and stairs. Keep cords for telephones and lamps out of the way so you dont need to walk over them. Remove small rugs or secure them with double-sided tape. This will prevent you from tripping. Use a nightlight when getting out of bed at night. Stay active to maintain overall strength and endurance. Know your limitations. If there is a task you can not complete with ease, do not risk a fall by trying to complete it. Call 911 or have someone else call if: You have fallen and are unconscious You have fallen and cannot move part of your body Contact your healthcare provider if: You have fallen and have pain or a headache You have questions or concerns about your condition or care. - Post Discharge Activity Work/Back to School Note: Back to Work
== END 2020-05-13 18:35 | disposition home or self-care (01) ==
LOC: FER 16:56
DX: S92.404A Nondisplaced unspecified fracture of right great toe, initial encounter for closed fracture (principal); S90.111A Contusion of right great toe without damage to nail, initial encounter
CPT/HCPCS: 73630-TC-RT-FY; 73660-TC-FY; 99284-25

== ENCOUNTER 2025-05-15 19:08 | Emergency (ER) | payer SELFPAY ==
[2025-05-15 19:20] VITALS: BP 114/67; PULSE 88; RESP 16; TEMP 98; BMI 21.9
== END 2025-05-15 21:15 | disposition home or self-care (01) ==
LOC: JERFT 19:08
DX: J90 Pleural effusion, not elsewhere classified (principal); R06.02 Shortness of breath; R07.89 Other chest pain
CPT/HCPCS: 71046-TC-FY; 99283-25